=== PATIENT | male | born 1975 | race Caucasian/White ===

== ENCOUNTER 2019-11-25 12:50 | Outpatient (AMBR) | payer MEDICARE, MEDICAID, SELFPAY ==
--- NOTE | 2019-11-25 13:38 | PTNOTE_ITS ---
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 Since Pt's TBI Pt has been having decrease balance, gait difficulty, coordination deficits, and limitation with ADLs. Pt reports of intermittent falls in the past 6 months. Pt was doing physical therapy at [facility] in October with some progress. Pt further reported that his last time walking was with a therapist at [facility]. Objective BLE AROM: all motions are WFL BLE MMTs: grossly 3+/5 Gait: unable CTSIB (condition 2): 15 sec Standing Posture: upper trunk lean to the right with wide KENDAL Assessment Pt demonstrate balance, coordination, and mobility deficits leading to decline function. Pt will attempt physical therapy if no progress made in the next few weeks; Pt will be d/c from care with [facility]. Pt is a poor candidate for physical therapy due to severity of TBI. Short Term and [employer] Controller Goals 1) Increase BLE MMTs grossly 4-/5 in 3 wks to be able to ambulate 20 ft 2) Increase CTSIB to 30 sec in 3 wks to be able to stand more than 15 mins safely 3) Teach proper sit to stand and back technique in 3 wks to safely transition from w/c to bed safely 4) Indep with HEP Treatment Plan 1) Manual Therapy 2) Therapeutic Activities 3) Therapeutic Exercises 4) Gait Training Frequency and Duration 2 x wk for 3 wks Certification Dates: 11/25/19 to 02/25/20 Office Procedures PT Procedures PT Date of Service: 11/25/19 OP PT Eval Mod Complex 30 minutes: Yes
== END 2019-12-02 23:59 | disposition home or self-care (01) ==
PROVIDERS: PCP Physician Assistant; Referring Provider Physician Assistant; Visit Provider Physician Assistant
DX: S06.2X9D Diffuse traumatic brain injury with loss of consciousness of unspecified duration, subsequent encounter (principal); R26.0 Ataxic gait; Z91.81 History of falling
CPT/HCPCS: 97162

== ENCOUNTER 2019-12-26 13:03 | Outpatient (AMBR) | payer MEDICARE, MEDICAID, SELFPAY ==
--- NOTE | 2019-12-10 14:56 | PT.ODAYNRPT ---
PT Outpatient Daily Note Date of Service: 12/10/19 OP Daily Note Visit Reasons: GAIT Outpatient Physical Therapy Treatment Date: 12/10/19 Subjective: Pt walks daily with aunt. Pt uses handrail for support. Pt stated that his back pain throws him off Objective: Please see flow chart for list of ther ex performed Assessment: frequent cues to perform ambulation and sit to stand safely. Pt's depth perception is decrease and has difficulty judging steps and hand placement during gait. Plan: Continue with PT Length of Time (minutes) of Treatment: 30 Minutes Office Procedures PT Procedures PT Date of Service: 12/10/19 Gait Training 15 minutes: Yes Therapeutic Exercise 15 minutes: Yes
--- NOTE | 2019-12-12 14:35 | PT.ODAYNRPT ---
PT Outpatient Daily Note Date of Service: 12/12/19 OP Daily Note Visit Reasons: GAIT Outpatient Physical Therapy Treatment Date: 12/12/19 Subjective: Pt afraid that he will never walk again. Pt feels that it's his vision that leading to the depth perception deficits. Pt also mention that his back has been hurting more so he's taking more meds lately. Objective: Please see flow chart for list of ther ex performed Assessment: inconsistent stride with gait; require tactile cue from therapists to plan foot correct with each step. Pt still exhibit poor standing balance and tolerance and leans to right side which may relate to his depth perception deficits and back pain. Plan: Continue with PT Length of Time (minutes) of Treatment: 30 Minutes Office Procedures PT Procedures PT Date of Service: 12/10/19 Gait Training 15 minutes: Yes Therapeutic Exercise 15 minutes: Yes PT Procedures PT Date of Service: 12/12/19 Gait Training 15 minutes: Yes Therapeutic Exercise 15 minutes: Yes
--- NOTE | 2019-12-19 14:31 | PT.ODAYNRPT ---
PT Outpatient Daily Note Date of Service: 12/19/2019 OP Daily Note Visit Reasons: GAIT Outpatient Physical Therapy Treatment Date: 12/19/19 Subjective: pt came in and states he does not have glasses and is waiting to see when he can get another pair which is a reason he can not see well. Objective: see flow sheet. Assessment: pt in WC and PT aide assisted with WC hold during gait training. pt has poor hand coordination as he tries to grab onto the PBs and needs assistance with correct placement. noted pt is not able to keep his foot placement intact when he stands. corrected his foot placement each time prior to getting up. when cuing him to bring his R foot forward during gait training he tends to bring the L foot forward so he needs TC for the correct leg. he tends to vasquez through the gait which then causes him to be off balance with poor posture. he forgets about his pelvis as he comes forward. his hands are too forward on the PB and his pelvis further back. needs cuing to step to gait and correct his upper body posture. pt has little control with his overall coordination. Plan: continue POC per PT. Length of Time (minutes) of Treatment: 45 Minutes SIDEWALK INSPECTOR Service Modifier Method I: Divide the number of min of care provided by the SIDEWALK INSPECTOR/PARTS SALES ASSOCIATE by the total min of care provided then multiply by 100. If greater than 11 percent modifier is required. Method II: Divide the total time of care provided to patient by 10 (round to the nearest whole number) and add 1 min. to set the minimum time requirement. If treatment total was 60 min., then 10% of 6 min Did SIDEWALK INSPECTOR provide more than 10% of the care?: Yes PT CQ modifier applied: CQ Modifier applied Office Procedures PT Procedures PT Date of Service: 12/10/19 Gait Training 15 minutes: Yes Therapeutic Exercise 15 minutes: Yes PT Procedures PT Date of Service: 12/12/19 Gait Training 15 minutes: Yes Therapeutic Exercise 15 minutes: Yes PT Procedures PT Date of Service: 12/19/19 Gait Training 15 minutes: Yes Therapeutic Exercise 15 minutes: Yes
--- NOTE | 2019-12-23 14:24 | PTNOTE_ITS ---
PT Outpatient Daily Note Date of Service: 12/23/2019 OP Daily Note Visit Reasons: GAIT Outpatient Physical Therapy Treatment Date: 12/23/19 Subjective: pt states his vision is getting worse but yet has not seen doctor f or new pair of glasses. Objective: see flow sheet. Assessment: PT aide assisted with assistance for WC. during gait training pt tends to lose director dietetics department on the R hand and states he can not feel grabbing onto the bar. needs correction for foot placement and hand placement. educated pt about balance and safety if he lets go each time. pt says he understands but has trouble knowing and feeling his position. his RLE does not stay in place each time he stands. his RLE tends to move laterally causing off balance. he gets SOB with each time he stands. pt does have difficulty with coordination of his feet with each steps. he can take good correct steps going forward but then he has his moments of stepping on my foot. he is resistive in standing due to his COG and KENDAL being on his LLE. pt's R hand has more trouble with coordination and hit my chest as he tries to grab onto the bar to stand but pt apologized. Plan: continue POC per PT. Length of Time (minutes) of Treatment: 45 Minutes WEATHERIZATION OPERATIONS MANAGER Service Modifier Method I: Divide the number of min of care provided by the WEATHERIZATION OPERATIONS MANAGER/KEN by the total min of care provided then multiply by 100. If greater than 11 percent modifier is required. Method II: Divide the total time of care provided to patient by 10 (round to the nearest whole number) and add 1 min. to set the minimum time requirement. If treatment total was 60 min., then 10% of 6 min Did WEATHERIZATION OPERATIONS MANAGER provide more than 10% of the care?: Yes PT CQ modifier applied: CQ Modifier applied Office Procedures PT Procedures PT Date of Service: 12/10/19 Gait Training 15 minutes: Yes Therapeutic Exercise 15 minutes: Yes PT Procedures PT Date of Service: 12/12/19 Gait Training 15 minutes: Yes Therapeutic Exercise 15 minutes: Yes PT Procedures PT Date of Service: 12/23/19 Gait Training 30 minutes: Yes Therapeutic Exercise 15 minutes: Yes PT Procedures PT Date of Service: 12/19/19 Gait Training 15 minutes: Yes Therapeutic Exercise 15 minutes: Yes
--- NOTE | 2019-12-26 13:42 | PT.ODS1RPT ---
PT OP Progress/Discharge Note Date of Service: 12/26/19 Progress Note/DC Note Progress Note/Discharge Note: DC Note Patient Information Visit Reasons: GAIT Medical Diagnosis: R26.0; TBI Treatment Dx #1: Abnormal Gait Treatment Dx #2: Balance Deficits Service Continue Service or Discharge: Discharge Discharge Date: 12/26/19 Status Subjective: Pt mention that he's worried about not being able to walk. Pt was walking when he was doing physical therapy at [facility] several months ago. Pt feels that now he's not making much progress. Pt has a intensive care specialist that comes in 45 mins a day to help with chores, cook, and ADLs. Pt continues to have limitation with ADLs, ambulation, and balance due to back pain and vision deficits. Objective: BLE AROM: all motions are WFL BLE MMTs: grossly 3+/5 CTSIB (condition): 15 sec Standing Posture: upper trunk lean to right with wide KENDAL Assessment: Pt demonstrate minimal progress with physical therapy due to extent of injury as well as comorbidities leading to difficulty with ambulation and ADLs. Pt completed 6 sessions of physical therapy and will no longer benefit from physical therapy due to plateau towards goals. Pt advised to follow up with provider for possible homehealth physical therapy to help with safe transfer, IADLS, and home ambulation. Pt did not meet set goals in therapy and was not given HEP due to unsafe to perform at home independently, thank you for your referrals. Plan: D/C home and follow up with provider Office Procedures PT Procedures PT Date of Service: 12/10/19 Gait Training 15 minutes: Yes Therapeutic Exercise 15 minutes: Yes PT Procedures PT Date of Service: 12/12/19 Gait Training 15 minutes: Yes Therapeutic Exercise 15 minutes: Yes PT Procedures PT Date of Service: 12/23/19 Gait Training 30 minutes: Yes Therapeutic Exercise 15 minutes: Yes PT Procedures PT Date of Service: 12/19/19 Gait Training 15 minutes: Yes Therapeutic Exercise 15 minutes: Yes PT Procedures PT Date of Service: 12/26/19 Gait Training 15 minutes: Yes Therapeutic Exercise 15 minutes: Yes
== END 2020-01-01 23:59 | disposition home or self-care (01) ==
PROVIDERS: PCP Physician Assistant; Referring Provider Physician Assistant; Visit Provider Physician Assistant
DX: S06.2X9D Diffuse traumatic brain injury with loss of consciousness of unspecified duration, subsequent encounter (principal); R26.0 Ataxic gait; X58.XXXD Exposure to other specified factors, subsequent encounter
CPT/HCPCS: 97110; 97116

== ENCOUNTER 2025-02-28 09:52 | Inpatient (IN) | payer MEDICARE, MEDICAID, SELFPAY ==
[2025-02-28 10:10] VITALS: BP 119/82; PULSE 85; RESP 18; TEMP 36.8; O2SAT 99; BMI 23.8
--- NOTE | 2025-02-28 10:12 | PD.EDRME ---
Rapid Medical Screening Exam RME Arrival date/time: 02/28/25 09:52 49-year-old male with a history of paraplegia presents to the emergency room with a chief complaint of multiple abscesses and wounds to his left medial knee and leg x 1 week I have greeted and performed a focused initial assessment of this patient. A comprehensive ED assessment and evaluation of the patient, analysis of all test results, and completion of the medical decision making process will be conducted by additional ED providers. Chief Complaint: Wound/Laceration Time Seen by Provider: 02/28/25 10:10 Vital signs reviewed by provider: Yes Exam: Erythemic draining abscess to the left medial knee and leg Clear bilateral lung sounds Clinical Impression: Abscess versus cellulitis versus staph infection
[2025-02-28 10:44] LABS: Lactate (Lactic Acid) 1.6 mMol/L (0.4-2.0)
[2025-02-28 10:49] LABS: Basophils # (Auto) 0.1 Thou/mm3 (0.0-0.2); Basophils % (Auto) 0 % (0-2.5); Eosinophils # (Auto) 0.1 Thou/mm3 (0.0-0.5); Eosinophils % (Auto) 1 % (0-10); Hematocrit 39.5 % (41.0-53.0); Hemoglobin 13.9 g/dL (13.5-16.0); Immature Granulocytes Auto 0.06 Thou/mm3 (0.00-0.00); Lymphocytes # (Auto) 1.2 Thou/mm3 (1.0-4.8); Lymphocytes % (Auto) 7 % (10-50); Mean Corpuscular HGB Conc 35.2 g/dl (31.0-37.0); Mean Corpuscular Hemoglobin 31.7 pg (25.0-35.0); Mean Corpuscular Volume 90 fL (80-100); Monocytes # (Auto) 1.4 Thou/mm3 (0.0-0.8); Monocytes % (Auto) 9 % (0-12); Neutrophils # (Auto) 13.1 Thou/mm3 (1.8-7.7); Neutrophils % (Auto) 83 % (37-80); Nucleated Red Blood Cell # 0.00 Thou/mm3 (0.00-0.00); Nucleated Red Blood Cell % 0 /100 WBC (0); Platelet Count 265 Thou/mm3 (140-440); RDW Standard Deviation 39.8 fL (35.1-43.9); Red Blood Count 4.39 Miln/mm3 (4.50-5.90); White Blood Count 15.9 Thou/mm3 (3.8-10.6)
[2025-02-28 11:17] LABS: Alanine Aminotransferase 19 U/L (10-49); Albumin, Serum 5.3 gm/dL (3.5-5.0); Albumin/Globulin Ratio 1.8 (1.2-2.2); Alkaline Phosphatase 75 U/L (46-116); Anion Gap 11 (7-16); Aspartate Amino Transferase 23 U/L (0-34); BUN/Creatinine Ratio 26 Ratio (12-20); Bilirubin,Total 0.8 mg/dL (0.3-1.2); Blood Urea Nitrogen 21 mg/dL (9-23); Calcium 10.0 mg/dL (8.3-10.6); Calcium (Corrected) 10.0 mg/dL (8.5-10.1); Carbon Dioxide 27.9 mMol/L (20.0-31.0); Chloride 103 mMol/L (98-107); Creatinine (Component) 0.8 mg/dL (0.6-1.3); Estimated Creatinine Clearance 99.7 mL/min (>60); Globulin 3.0 gm/dL (2.3-3.5); Glucose 112 mg/dL (74-106); Osmolality,Calculated 287 (275-295); Potassium 3.8 mMol/L (3.4-5.1); Procalcitonin 0.24 ng/ml (0.0-0.49); Sodium 142 mMol/L (136-145); Total Protein 8.3 gm/dL (5.7-8.2); eGFR > 60 See Note
[2025-02-28 13:42] LABS: Collection Type, Urine Clean Catch; Squamous Epithelial Cell,Urine 0 /hpf (0-5)
[2025-02-28 13:55] LABS: Bilirubin,Urine Negative (Negative); Blood,Urine Negative (Negative); Clarity,Urine Clear (Clear/Hazy); Color,Urine Yellow (Lt Yel-Yel); Glucose, Urine Negative (Negative); Ketones,Urine Trace (Negative); Leukocyte Esterase,Urine Negative (Negative); Nitrite,Urine Negative (Negative); PH,Urine 6.0 (5.0-7.0); Protein,Urine 1+ (Neg - Trace); RBC,Urine 3 /hpf (0-3); Specific Gravity,Urine 1.034 (1.001-1.035); Urobilinogen,Urine Negative mg/dL (0.0-1.0); WBC,Urine 1 /hpf (0-5)
[2025-02-28 16:07] VITALS: BP 146/89; PULSE 87; RESP 18; TEMP 36.9; O2SAT 99
--- NOTE | 2025-02-28 16:35 | XR_ITS ---
EXAMINATION: Left knee 2 views TECHNIQUE: AP lateral left knee 2 views Date and time: February 28, 2025, 1647 hours INDICATIONS: Injury to the medial aspect of the knee with swelling and redness as well as pus-like drainage from the medial aspect of the knee FINDINGS: No fracture No cortical bone destruction No foreign body IMPRESSION: Consider ultrasound soft tissue follow-up medial aspect of the knee
--- NOTE | 2025-02-28 16:36 | PD.EDWOUND ---
ED Wound/Laceration-RME/HPI General Chief Complaint: Wound/Laceration Stated Complaint: INFECTION LEFT LEG Time Seen by Provider: 02/28/25 10:10 Arrival date/time: 02/28/25 09:52 51-year-old male patient with significant history of paraparesis, secondary to back injury long time ago, came in for evaluation regarding redness to the left lower leg. According to the patient it happened about 3 to 4 days ago as direct trauma to the medial aspect of the knee, resulting into redness and swelling. Patient has noticed puslike drainage on the medial aspect of the knee. Patient is denying any fever. Patient denies any other complaints. No medications taken prior to ER visit. Patient is not diabetic. RME / HPI RME / HPI narrative: 02/28/25 09:52 49-year-old male with a history of paraplegia presents to the emergency room with a chief complaint of multiple abscesses and wounds to his left medial knee and leg x 1 week I have greeted and performed a focused initial assessment of this patient. A comprehensive ED assessment and evaluation of the patient, analysis of all test results, and completion of the medical decision making process will be conducted by additional ED providers. Exam: Erythemic draining abscess to the left medial knee and leg Clear bilateral lung sounds Impression: Abscess versus cellulitis versus staph infection Related Data Home Medications ?Medication ?Instructions ?Recorded ?Confirmed meloxicam 15 mg tablet 15 mg PO QDAY 05/18/22 05/18/22 omeprazole 20 mg capsule,delayed 20 mg PO QDAY 05/18/22 05/18/22 release Previous Rx's ?Medication ?Instructions ?Recorded albuterol sulfate 90 mcg/actuation 1 inh inhalation QID PRN shortness 05/18/22 aerosol inhaler of breath or wheezing #8.5 grams clindamycin HCl 300 mg capsule 300 mg PO QID #40 caps 10/23/22 Allergies Allergy/AdvReac Type Severity Reaction Status Date / Time No Known Allergies Allergy Verified 02/28/25 09:55 Review of Systems Review of Systems Narrative Review of Systems: Review of system reviewed and within normal limits except mentioned in HPI ED Exam Narrative Physical exam: VITAL SIGNS: Reviewed. GENERAL APPEARANCE: Alert and interactive, follows commands, no acute distress, HEAD AND FACE: Non-traumatic. ENT: PERRL, pink conjunctivitis, eyelid no trauma, Mucous membrane moist. NECK: Supple, nontender, no nuchal rigidity. CHEST: No tenderness, no crepitus, no paradoxical movement, no retractions. LUNGS: Clear, well ventilated, symmetric, no rales, no wheezing, no ronchi, no stridor, good breath sounds bilaterally. HEART: Regular rate, regular rhythm, no murmur, no gallops. ABDOMEN: Soft, positive bowel sounds, nondistended, no guarding, nontender, no rebound, no masses, RECTAL: Deferred. GENITAL: Deferred. NEUROLOGICAL: Gross motor function intact sensory function intact, Appropriate for age. MUSCULOSKELETAL: low back nontender, full range of motion. EXTREMITIES:50 x 35 cm redness, swelling, left mid lower leg nonfluctuant with wound on the medial aspect of the knee, contracted knee joints SKIN: Color pink, dry, no rash, no lacerations, no abrasions, no contusions. LYMPHATICS: Deferred. Course Quality Measures none Orders Category Date Time Status COVID-19 Screening Questionnaire NOW Care 02/28/25 17:24 Active Decision to Admit X1 Care 02/28/25 17:23 Completed XR knee limited LT 2V Stat Exams 02/28/25 16:35 Completed Blood Culture (Lab) Stat Lab 02/28/25 10:35 Received CBC Stat Lab 02/28/25 10:35 Completed CMP [Comprehensive Metabolic Panel] Stat Lab 02/28/25 10:35 Completed Lactate (Lactic Acid) Stat Lab 02/28/25 10:35 Completed Procalcitonin Stat Lab 02/28/25 10:35 Completed UA [Urinalysis] Stat Lab 02/28/25 13:00 Completed Urine Culture Stat Lab 02/28/25 12:59 Received Ampicillin/Sulbac Inj [Unasyn Inj] 3 gm Med 02/28/25 16:35 Discontinued Sodium Chloride 0.9% (Pop) [NS 0.9% mini bag] 100 ml IV X1 Morphine* Inj Med 02/28/25 16:45 Discontinued 4 mg IVP X1 ONE Vancomycin Inj 1,000 mg Med 02/28/25 16:36 Discontinued Sodium Chloride 0.9% 250 ml [Ns] 250 ml IV X1 Vital Signs Vital signs: Vital Signs Temperature 98.2 F 02/28/25 10:10 Pulse Rate 85 02/28/25 10:10 Respiratory Rate 18 02/28/25 10:10 Blood Pressure 119/82 02/28/25 10:10 Pulse Oximetry (%) 99 02/28/25 10:10 Oxygen Delivery Method Room Air 02/28/25 10:10 Wound / Laceration MDM Narrative MDM Narrative:: 51-year-old male patient with significant history of paraparesis, secondary to back injury long time ago, came in for evaluation regarding redness to the left lower leg. According to the patient it happened about 3 to 4 days ago as direct trauma to the medial aspect of the knee, resulting into redness and swelling. Patient has noticed puslike drainage on the medial aspect of the knee. Patient is denying any fever. Patient denies any other complaints. No medications taken prior to ER visit. Patient is not diabetic. Patient had a leukocytosis of 15.9. Neutrophil of 83%. Urinalysis no UTI. CT scan of the lower extremity showed No fracture or cortical bone destruction Fluid collection medial knee at the level of the patella, 33 x 17 x 53 mm, consider hematoma, clinical correlation advised Patient received ampicillin-sulbactam and vancomycin IV. Spoke with hospitalist, who admitted the patient Patient data External records reviewed:: None Clinical information provided by:: patient Social determinants that could affect healthcare access:: none Patient has the following chronic illnesses:: None How is presenting disease/condition affected by chronic disease/condition?: no chronic disease Evaluation data The following diagnostics were reviewed and interpreted by me:: lab results and radiology exam(s) Lab and/or radiology exams considered but not ordered:: Plan Interpretation Summary: See above Medications / Prescriptions Medications or Prescriptions considered but not ordered:: None Medication administrations:: Medication Administration History Acetaminophen (Acetaminophen 325 Mg Tablet) 650 mg PO Q6HR PRN PRN Reason: Pain 1-3 or Fever >100.4 Stop: 03/30/25 18:58 Albuterol/Ipratropium (Albuterol/Ipratropium (Duoneb) Rt Stephanie 3 Ml Nebu) 3 ml INH Q4HRRT GOLD Stop: 03/30/25 22:59 Ceftriaxone Sodium/Dextrose (Rocephin/D5w 1gm Iv Premix) 1 gm in 50 mls @ 100 mls/hr IV QDAY GOLD Stop: 03/07/25 18:57 Last Admin: 02/28/25 20:40 Dose: 100 mls/hr Documented By: Pharmacy Consult (Vancomycin Pharmacy To Dose 1 Each Each) 1 each IV QDAY GOLD Stop: 03/31/25 08:59 Discontinued Medications Ampicillin Sodium/Sulbactam (Sodium 3 gm/ Sodium Chloride) 100 mls @ 200 mls/hr IV X1 ONE Stop: 02/28/25 16:36 Last Infusion: 02/28/25 18:04 Dose: Infused Documented By: Admin: 02/28/25 17:34 Dose: 200 mls/hr Documented By: EF Vancomycin HCl 1,000 mg/ (Sodium Chloride) 250 mls @ 150 mls/hr IV X1 ONE Stop: 02/28/25 18:15 Last Infusion: 02/28/25 20:40 Dose: Infused Documented By: Admin: 02/28/25 17:34 Dose: 150 mls/hr Documented By: EF Morphine Sulfate (Morphine Sulf Inj 4 Mg/Ml Vial) 4 mg IVP X1 ONE Stop: 02/28/25 16:46 Last Admin: 02/28/25 17:34 Dose: 4 mg Documented By: EF Morphine, Vanco, ampicillin sulbactam Consultations Consultation(s) initiated? (list below): No Diagnosis Wound Differential Diagnosis: laceration, abscess and other (Abscess/cellulitis left lower extremity) Most likely diagnosis given after review of the tests above:: Abscess/cellulitis left lower extremity Admission Indicated Admission indicated?: not indicated Admission Request Was there a request for admission?: Yes Admission Attestation Admission request attestation: Discussed case with [Dr. Ruelas] from Hospitalist service regarding admission. Discussed patients ED course, exam findings, labs, and radiology results. The Hospitalist [agrees] to accept the patient for admission. Disposition Plan Disposition Plan: Admit Discharge Plan Plan Patient Disposition: Admit Acute Care w/in Hospital Problem List Clinical Impression: Cellulitis and abscess of left leg
[2025-02-28] MEDS: AMPICILLIN/SULBAC INJ 3 GM in SODIUM CHLORIDE 0.9% (POP) 100 ML IV (17:34)
[2025-02-28] MEDS: MORPHINE SULF INJ 4 MG/ML VIAL IVP (17:34)
[2025-02-28] MEDS: Vancomycin Inj 1,000 MG in SODIUM CHLORIDE 0.9% 250 ML 250 ML 150 MG IV (17:34)
[2025-02-28 18:45] VITALS: BP 125/88; PULSE 71; RESP 18; TEMP 37.1; O2SAT 99
--- NOTE | 2025-02-28 19:01 | XR_ITS ---
Examination: CT left lower leg, without contrast. 2-D sagittal reconstructions. 2-D coronal reconstructions. 3-D reconstructions. Date and time of exam: February 28, 2025, 1920 hours INDICATIONS: Patient fell 3 days ago with injury to the lower leg, lower leg pain CTDI: vol (mGy): 7.92 DLP: (mGycm): 497 Technique: Multiple 1.25 mm axial sections of the left lower extremity have been obtained. 2-D sagittal and coronal reconstructions have been obtained. 3-D reconstructions have been obtained. Low dose protocols were performed. One or more of the following dose reduction techniques were used; automated exposure control, adjustment of the mA and/or KV according to patient size, use of iterative reconstruction technique. Findings: Distal femur femoral condyles intact No patellar dislocation Tibial plateau tibia fibular head and neck tibia and fibular shafts intact Negative for fracture Negative for osteomyelitis Fluid collection medial knee at the level of the patella, 33 x 17 x 58 mm IMPRESSION: No fracture or cortical bone destruction Fluid collection medial knee at the level of the patella, 33 x 17 x 53 mm, consider hematoma, clinical correlation advised
[2025-02-28 19:52] VITALS: BP 114/77; PULSE 78; RESP 19; TEMP 36.2; O2SAT 96
[2025-02-28] MEDS: cefTRIAXone/D5w 1gm IV premix 1 GM/50 ML BAG IV (20:40)
--- NOTE | 2025-02-28 20:41 | PRELIM_ITS ---
CT scan of the left lower extremity without intravenous contrast (axial sections with sagittal and coronal reformats) February 28, 2025 1920 hours Clinical History: Cellulitis and abscess. Comparison: No prior study is available for comparison. Findings: Demonstrate normal density. No evidence of fracture or dislocation. No evidence of osseous erosion, destruction or focal osseous lesion. Joints are unremarkable. No significant joint effusion is seen. Suspicious subtle mild hypodensity of the peripheral portion of the distal vastus medialis muscle belly is seen. The quadriceps and patellar tendons are intact. Moderate to marked ill- defined abnormal superficial soft tissue thickening is seen along the anteromedial aspect of the knee with adjacent subcutaneous fat stranding. No focal fluid collection on this non-contrast study. No evidence of soft tissue emphysema or radiodense foreign body. Impression: 1. Findings suggestive of moderate to marked ill-defined phlegmon along the anteromedial aspect of the knee with adjacent cellulitis. No focal fluid collection on this non-contrast study to suggest an abscess. No evidence of soft tissue emphysema or radiodense foreign body. 2. Suspicious subtle mild hypodensity of the peripheral portion of the distal vastus medialis muscle belly, cannot exclude edema versus myositis. 3. No CT evidence of osteomyelitis. Report Electronically Signed By: Johnny Zepeda 02/28/2025 8:40:21 PM [EST]
[2025-02-28 23:04] VITALS: PULSE 78; RESP 18; O2SAT 100
[2025-02-28] MEDS: ALBUTEROL/IPRATROPIUM (Duoneb) RT SOL 3 ML NEBU INH (23:04)
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
[2025-03-01] VITALS (12 sets, daily range): BP systolic 116–140; BP diastolic 68–93; PULSE 68–100; RESP 14–20; TEMP 36–37.3; O2SAT 92–100
[2025-03-01] MEDS: ALBUTEROL/IPRATROPIUM (Duoneb) RT SOL 3 ML NEBU INH ×6 (02:59→22:54)
[2025-03-01 06:34] LABS: Basophils # (Auto) 0.1 Thou/mm3 (0.0-0.2); Basophils % (Auto) 0 % (0-2.5); Eosinophils # (Auto) 0.3 Thou/mm3 (0.0-0.5); Eosinophils % (Auto) 3 % (0-10); Hematocrit 35.0 % (41.0-53.0); Hemoglobin 12.0 g/dL (13.5-16.0); Immature Granulocytes Auto 0.04 Thou/mm3 (0.00-0.00); Lymphocytes # (Auto) 0.9 Thou/mm3 (1.0-4.8); Lymphocytes % (Auto) 8 % (10-50); Mean Corpuscular HGB Conc 34.3 g/dl (31.0-37.0); Mean Corpuscular Hemoglobin 31.5 pg (25.0-35.0); Mean Corpuscular Volume 92 fL (80-100); Monocytes # (Auto) 1.2 Thou/mm3 (0.0-0.8); Monocytes % (Auto) 10 % (0-12); Neutrophils # (Auto) 9.2 Thou/mm3 (1.8-7.7); Neutrophils % (Auto) 79 % (37-80); Nucleated Red Blood Cell # 0.00 Thou/mm3 (0.00-0.00); Nucleated Red Blood Cell % 0 /100 WBC (0); Platelet Count 238 Thou/mm3 (140-440); RDW Standard Deviation 40.7 fL (35.1-43.9); Red Blood Count 3.81 Miln/mm3 (4.50-5.90); White Blood Count 11.7 Thou/mm3 (3.8-10.6)
[2025-03-01 06:44] LABS: Glucose Estimated Average 103 mg/dL (80-131); Hemoglobin A1C 5.2 % Hgb (4.8-6.0)
[2025-03-01 06:50] LABS: Anion Gap 9 (7-16); BUN/Creatinine Ratio 30 Ratio (12-20); Blood Urea Nitrogen 21 mg/dL (9-23); Calcium 9.0 mg/dL (8.3-10.6); Carbon Dioxide 27.9 mMol/L (20.0-31.0); Cardiac Risk Estimate 4.4 RATIO (4.0-6.7); Chloride 105 mMol/L (98-107); Cholesterol 150 mg/dL (132-200); Creatinine (Component) 0.7 mg/dL (0.6-1.3); Estimated Creatinine Clearance 97.5 mL/min (>60); Glucose 110 mg/dL (74-106); HDL Cholesterol 34 mg/dL (40-60); LDL Cholesterol,Calculated 98 mg/dL (0-130); Osmolality,Calculated 287 (275-295); Potassium 3.6 mMol/L (3.4-5.1); Sodium 142 mMol/L (136-145); Triglycerides 92 mg/dL (30-150); eGFR > 60 See Note
[2025-03-01] MEDS: cefTRIAXone/D5w 1gm IV premix 1 GM/50 ML BAG IV (08:26)
[2025-03-01] MEDS: ENOXAPARIN SOD INJ 40 MG/0.4 ML SYRINGE SC (08:26)
[2025-03-01] MEDS: VANCOMYCIN/WATER 1250 MG IVPB 250 ML 120 MG IV ×2 (10:30→22:22)
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
--- NOTE | 2025-03-01 16:22 | PC.SS ---
Rounding: Pending PT, on IV ABX
[2025-03-01] MEDS: HYDROcodone/APAP 5/325 TABLET 1 TAB PO (19:52)
[2025-03-01] MEDS: DiphenhydrAMINE ELIX 25 MG/10 ML UDC PO (22:22)
[2025-03-01] MEDS: KETOROLAC 10 MG TABLET 15 MG PO (23:02)
[2025-03-02] VITALS (9 sets, daily range): BP systolic 106–135; BP diastolic 66–100; PULSE 61–91; RESP 18–19; TEMP 36.2–36.5; O2SAT 93–98
[2025-03-02] MEDS: MELATONIN 3 MG TABLET 6 MG PO (01:19)
[2025-03-02] MEDS: HYDROcodone/APAP 5/325 TABLET 1 TAB PO ×3 (01:21→20:18)
[2025-03-02 06:13] LABS: Basophils # (Auto) 0.0 Thou/mm3 (0.0-0.2); Basophils % (Auto) 1 % (0-2.5); Eosinophils # (Auto) 0.6 Thou/mm3 (0.0-0.5); Eosinophils % (Auto) 8 % (0-10); Hematocrit 33.3 % (41.0-53.0); Hemoglobin 11.2 g/dL (13.5-16.0); Immature Granulocytes Auto 0.04 Thou/mm3 (0.00-0.00); Lymphocytes # (Auto) 0.7 Thou/mm3 (1.0-4.8); Lymphocytes % (Auto) 9 % (10-50); Mean Corpuscular HGB Conc 33.6 g/dl (31.0-37.0); Mean Corpuscular Hemoglobin 30.9 pg (25.0-35.0); Mean Corpuscular Volume 92 fL (80-100); Monocytes # (Auto) 1.2 Thou/mm3 (0.0-0.8); Monocytes % (Auto) 15 % (0-12); Neutrophils # (Auto) 5.3 Thou/mm3 (1.8-7.7); Neutrophils % (Auto) 67 % (37-80); Nucleated Red Blood Cell # 0.00 Thou/mm3 (0.00-0.00); Nucleated Red Blood Cell % 0 /100 WBC (0); Platelet Count 213 Thou/mm3 (140-440); RDW Standard Deviation 40.6 fL (35.1-43.9); Red Blood Count 3.62 Miln/mm3 (4.50-5.90); White Blood Count 7.9 Thou/mm3 (3.8-10.6)
[2025-03-02] MEDS: ALBUTEROL/IPRATROPIUM (Duoneb) RT SOL 3 ML NEBU INH (06:25)
[2025-03-02 06:38] LABS: Anion Gap 8 (7-16); BUN/Creatinine Ratio 24 Ratio (12-20); Blood Urea Nitrogen 19 mg/dL (9-23); Calcium 9.0 mg/dL (8.3-10.6); Carbon Dioxide 27.6 mMol/L (20.0-31.0); Chloride 105 mMol/L (98-107); Creatinine (Component) 0.8 mg/dL (0.6-1.3); Estimated Creatinine Clearance 85.3 mL/min (>60); Glucose 112 mg/dL (74-106); Osmolality,Calculated 284 (275-295); Potassium 3.6 mMol/L (3.4-5.1); Sodium 141 mMol/L (136-145); eGFR > 60 See Note
[2025-03-02] MEDS: cefTRIAXone/D5w 1gm IV premix 1 GM/50 ML BAG IV (08:07)
[2025-03-02] MEDS: ENOXAPARIN SOD INJ 40 MG/0.4 ML SYRINGE SC (08:07)
[2025-03-02 10:24] LABS: Vancomycin,Trough 10.9 mcg/mL (5.0-10.0)
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
[2025-03-02] MEDS: VANCOMYCIN/WATER 1250 MG IVPB 250 ML 120 MG IV ×2 (10:56→21:10)
--- NOTE | 2025-03-02 15:19 | PC.SS ---
Johan Jorge is a 49 year-old male admitted to [place] for Left Leg Cellulitis. SS conducted bedside contact with the patient to complete initial assessment and to discuss discharge planning. Role and reason explained. Patient confirmed demographic information. Patient identifies his sister Jannie Jorge unaure of her number at this time as his surrogate decision maker. Pt states he has a caregiver Sherrill Jordan [phone] and Rupesh [phone] who helps with ADLs and shower, pt is primarily wheelchair bound. Pts PCP is [facility] last visit was 7 months ago. Pharmacy of choice is [facility]. Discharge options discussed and the pt wishes to return home.? Pt caregiver Rupesh will pick him up as he has pt wheelchair. No further intervention required at this time, social insurance specialist would be available to address any further concerns. DC Plan: Home Contact: Sister, Jannie (per Sherrill she will attempt to get #) Address: [address] [facility] PCP: [facility]
[2025-03-03] VITALS: BP 135/99; PULSE 84; RESP 16; TEMP 36.7; O2SAT 90
[2025-03-03] MEDS: HYDROcodone/APAP 5/325 TABLET 1 TAB PO ×2 (02:35→08:11)
[2025-03-03 03:59] VITALS: BP 146/89; PULSE 86; RESP 16; TEMP 36.6; O2SAT 94
[2025-03-03 05:41] LABS: Basophils # (Auto) 0.1 Thou/mm3 (0.0-0.2); Basophils % (Auto) 1 % (0-2.5); Eosinophils # (Auto) 0.8 Thou/mm3 (0.0-0.5); Eosinophils % (Auto) 7 % (0-10); Hematocrit 37.3 % (41.0-53.0); Hemoglobin 12.6 g/dL (13.5-16.0); Immature Granulocytes Auto 0.10 Thou/mm3 (0.00-0.00); Lymphocytes # (Auto) 1.4 Thou/mm3 (1.0-4.8); Lymphocytes % (Auto) 12 % (10-50); Mean Corpuscular HGB Conc 33.8 g/dl (31.0-37.0); Mean Corpuscular Hemoglobin 31.0 pg (25.0-35.0); Mean Corpuscular Volume 92 fL (80-100); Monocytes # (Auto) 1.5 Thou/mm3 (0.0-0.8); Monocytes % (Auto) 13 % (0-12); Neutrophils # (Auto) 7.5 Thou/mm3 (1.8-7.7); Neutrophils % (Auto) 66 % (37-80); Nucleated Red Blood Cell # 0.00 Thou/mm3 (0.00-0.00); Nucleated Red Blood Cell % 0 /100 WBC (0); Platelet Count 288 Thou/mm3 (140-440); RDW Standard Deviation 39.9 fL (35.1-43.9); Red Blood Count 4.07 Miln/mm3 (4.50-5.90); White Blood Count 11.3 Thou/mm3 (3.8-10.6)
[2025-03-03 05:58] LABS: Anion Gap 9 (7-16); BUN/Creatinine Ratio 23 Ratio (12-20); Blood Urea Nitrogen 16 mg/dL (9-23); Calcium 9.1 mg/dL (8.3-10.6); Carbon Dioxide 25.9 mMol/L (20.0-31.0); Chloride 108 mMol/L (98-107); Creatinine (Component) 0.7 mg/dL (0.6-1.3); Estimated Creatinine Clearance 97.5 mL/min (>60); Glucose 104 mg/dL (74-106); Osmolality,Calculated 286 (275-295); Potassium 4.2 mMol/L (3.4-5.1); Sodium 143 mMol/L (136-145); eGFR > 60 See Note
[2025-03-03 08:00] VITALS: BP 128/94; PULSE 78; RESP 18; TEMP 36.4; O2SAT 95
[2025-03-03] MEDS: ENOXAPARIN SOD INJ 40 MG/0.4 ML SYRINGE SC (08:11)
[2025-03-03] MEDS: cefTRIAXone/D5w 1gm IV premix 1 GM/50 ML BAG IV (08:11)
[2025-03-03] MEDS: VANCOMYCIN/WATER 1250 MG IVPB 250 ML 120 MG IV (10:18)
[2025-03-03] MEDS: LIDOCAINE 5% 1 PATCH TOP (10:19)
--- NOTE | 2025-03-03 10:44 | PC.SS ---
Rounding: Pt was identified as a possible DC home today, no needs identified. Pt caregiver Rupesh will provide transportation on pt behalf
--- NOTE | 2025-03-03 10:52 | PC.NURSE ---
Discharge orders in, pending wound RN consult and d/c wound needs/planning
[2025-03-03 11:05] VITALS: BP 146/93; PULSE 73; RESP 18; TEMP 36.4; O2SAT 96
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
== END 2025-03-03 13:58 | disposition home or self-care (01) | DRG 603 ==
LOC: SERX 11:45 → SERHOLD 18:24 → S3NX 20:57
PROVIDERS: Nurse Practitioner Family; Student in an Organized Health Care Education/Training Program; Admitting Provider Student in an Organized Health Care Education/Training Program; Emergency Provider Emergency Medicine; PCP Family Medicine; Visit Provider Student in an Organized Health Care Education/Training Program
DX: L03.116 Cellulitis of left lower limb (principal); G82.20 Paraplegia, unspecified; L97.828 Non-pressure chronic ulcer of other part of left lower leg with other specified severity; F17.210 Nicotine dependence, cigarettes, uncomplicated; F12.90 Cannabis use, unspecified, uncomplicated; Z22.322 Carrier or suspected carrier of Methicillin resistant Staphylococcus aureus; B95.62 Methicillin resistant Staphylococcus aureus infection as the cause of diseases classified elsewhere; J45.909 Unspecified asthma, uncomplicated
CPT/HCPCS: 36415; 73560; 73700; 80048; 80053; 80061; 80202; 81001; 83036; 83605; 84145; 85025; 87040; 87070; 87077; 87081; 87086; 87186; 87205; 94640; 96365; 96375; 99284; A9270; J0295; J0696; J1650; J2270; J3373; J3375; J3490; J7050